=== PATIENT | female | born 1990 | race Caucasian/White ===

== ENCOUNTER → 2016-02-15 | Outpatient (CLI) | payer BC ==
--- NOTE | 2016-02-15 17:10 | REP ---
OBSTETRIC SONOGRAPHY: HISTORY: Supervision of . Followup anatomy. FINDINGS: Scanning through the gravid uterus demonstrates a viable single intrauterine gestation in a breech lie. motion is observed and heart rate is recorded at 136 beats per minute. A posterior grade 0 placenta is seen without evidence of previa or abruption. Amniotic fluid is subjectively normal. Closed cervical length is 3.4 cm. No extrauterine abnormality is observed. There has been appropriate interval growth. No anatomy is seen. The following anatomic structures are identified and felt to be sonographically unremarkable: cranium, cavum, cerebellum and posterior fossa, face in profile, lungs, four chamber heart, left and right ventricular cardiac outflow tract views, diaphragm, left-sided stomach, abdominal wall cord insertion, three-vessel umbilical cord, kidneys, bladder, spine, upper and lower extremities. Biometry chart: BPD 5.8 cm = 23 weeks 4 days HC 21.1 cm = 23 weeks 1 day AC 19.5 cm = 24 weeks 1 day FL 4.1 cm = 23 weeks 1 day HL 4.0 cm = 24 weeks 3 days CD 2.7 cm = 24 weeks 2 days HC/AC ratio normal 1.08. Cephalic index normal 0.76. Estimated weight 619 grams, 1 pound 5 ounces, 36th percentile for 24 weeks 0 days. IMPRESSION: Viable single intrauterine gestation at 23 weeks 1 day by today's composite sonographic criteria. Expected gestational age estimated based on prior sonography is 24 weeks 0 days. SAMSON by prior sonography 06/06/2016. anatomic survey is felt to be complete. Signed by Renan Macias MD 02/15/2016 06:02 P
== END ==
LOC: M SMT 08:47
PROVIDERS: ATTEND Specialist
DX: Z34.82 Encounter for supervision of other normal pregnancy, second trimester (principal); Z3A.23 23 weeks gestation of pregnancy

== ENCOUNTER → 2016-02-20 | Outpatient (CLI) | payer BC ==
[2016-02-20 13:50] LABS: MEAN CORPUSCULAR HEMOGLOBIN 22.5 pg (27.0-33.0); MEAN CORPUSCULAR HGB CONC 31.9 g/dl (32.0-36.5); MEAN CORPUSCULAR VOLUME 70.4 fl (80.0-96.0); RED CELL DISTRIBUTION WIDTH 15.1 % (11.5-14.5); WHITE BLOOD COUNT 10.8 K/mm3 (4.0-10.0)
[2016-02-21 12:36] LABS: CONTROL LINE INT CTR LINE PRESENT; HIV SCRN NEGATIVE (NEGATIVE); HIV SCRN1 NEGATIVE (NEGATIVE)
== END ==
LOC: M SMT 09:27
PROVIDERS: ATTEND Obstetrics & Gynecology
DX: Z34.82 Encounter for supervision of other normal pregnancy, second trimester (principal)

== ENCOUNTER → 2016-05-09 | Outpatient (REF) | payer BC | LOC: M LAB REF 12:52 | PROVIDERS: ATTEND Advanced Practice Midwife | DX: Z34.83 Encounter for supervision of other normal pregnancy, third trimester (principal) ==

== ENCOUNTER 2016-06-02 02:45 | Outpatient (CLI) | payer BC ==
[~2016-06-02] VITALS: Ht 167.6 cm; Wt 88.0 kg
== END 2016-06-02 06:30 | disposition home or self-care (01) ==
LOC: M LDO 02:45
PROVIDERS: ATTEND Specialist
DX: O62.0 Primary inadequate contractions (principal); Z3A.40 40 weeks gestation of pregnancy

== ENCOUNTER 2016-06-06 12:05 | Inpatient (IN) | payer BC ==
[2016-06-06] VITALS (32 sets, daily range): BP systolic 109–191; BP diastolic 58–89
[~2016-06-06] VITALS: Ht 167.6 cm; Wt 86.0 kg
[2016-06-06] MEDS ORDERED: PRENTAB9 PO (12:43)
[2016-06-06] MEDS ORDERED: OXYTOCIN DRIP 30 UNITS in APPROPRIATE DILUENT 1 EA IV SCH (14:15)
[2016-06-06 15:35] LABS: MEAN CORPUSCULAR HEMOGLOBIN 22.4 pg (27.0-33.0); MEAN CORPUSCULAR HGB CONC 31.4 g/dl (32.0-36.5); MEAN CORPUSCULAR VOLUME 71.3 fl (80.0-96.0); RED CELL DISTRIBUTION WIDTH 15.5 % (11.5-14.5); WHITE BLOOD COUNT 17.7 K/mm3 (4.0-10.0)
[2016-06-06 16:19] LABS: HBSAG L&D NEGATIVE (NEGATIVE)
--- NOTE | 2016-06-06 16:43 | HPE ---
DATE OF ADMISSION: 06/06/2016 PREOPERATIVE DIAGNOSIS: Induction of labor at 40 weeks, 5 days estimated gestational age. HISTORY OF PRESENT ILLNESS: Ms. Babb is a 26-year-old 1 who presents at 40 weeks, 5 days estimated gestational age by last menstrual period and confirmed by a first trimester ultrasound for induction of labor. She initially presented to the office today and was evaluated for a routine visit. She was noted to have bradycardia on Doppler tones with a heart rate of 90s that increased to a heart rate of 130s. She was then placed on the nonstress test and had a category 2 heart tracing with minimal variability with some variable decelerations. She reported active movement. She denies any vaginal bleeding or leakage of fluid. She has had some irregular contractions. Her course has been unremarkable. She initiated care in the first trimester in [place] and then transferred to our practice at 16 weeks. She has no medical problems. PAST MEDICAL HISTORY: None. PAST SURGICAL HISTORY: None. POST OBSTETRICAL HISTORY: She is a 1. MEDICATIONS: Include vitamins. ALLERGIES: She has no known drug allergies. SOCIAL HISTORY: Denies any alcohol, tobacco, or drug use during . PHYSICAL EXAMINATION: VITAL SIGNS: Stable. She is afebrile. She currently has a category 1 heart rate tracing with some occasional variable decelerations. She has some regular contractions on tocometer. GENERAL APPEARANCE: She is well-appearing in no acute distress. LUNGS: Clear to auscultation bilaterally. CARDIOVASCULAR: Heart regular rate and rhythm. ABDOMEN: Gravid, nontender. Estimated weight 3400 grams. CERVICAL EXAMINATION: She is 2-3 cm dilated, 75% effaced, -3 station. LABORATORY DATA: Blood type is A positive. Antibody screen is negative. Rubella is immune. RPR is nonreactive. Hepatitis surface antigen is negative. HIV is negative. Hepatitis C is nonreactive. Chlamydia and gonorrhea screens were negative. She has a normal one-hour Glucola. She is GBS negative. ASSESSMENT: This patient is a 26-year-old 1 at 40 weeks, 5 days estimated gestational age here for induction of labor secondary to category 2 heart tracing earlier but currently with reassuring status. PLAN: Admit to labor and delivery, complete blood count (CBC), rapid plasma reagin (RPR), type and screen. I have counseled the couple thoroughly in regards to her diagnosis and discussed pending postdates, currently at 40 weeks, 5 days estimated gestational age and heart tracing with category 2 tracing. I discussed induction of labor and all questions have been answered. She has been verbally consented for emergency surgery, blood products, anesthesia, and desires to proceed with labor. Plan to initiate her induction of labor with pitocin. MIRIAM
[2016-06-06] MEDS ORDERED: FENTANYL 2MCG/ML ROPIVACAINE 0.2% IN 0.9% NACL 200ML IVBAG As Ordered ONE (16:51)
[2016-06-06] MEDS ORDERED: ONDANSETRON 4MG/2ML VIAL (J2405) IV PRN (17:45)
[2016-06-06] MEDS ORDERED: diphenhydrAMINE INJ 50MG/ML VIAL (J1200) IV PRN (17:45)
[2016-06-06] MEDS ORDERED: NALOXONE INJ 0.4 MG/1 ML VIAL (J2310) IV PRN (17:45)
[2016-06-06] MEDS ORDERED: FENTANYL/ROPIVACAINE/NACL BAG 200 ML EPIDURAL SCH (17:45)
[2016-06-06] MEDS ORDERED: EPIDURAL/PCA KEYS XX PRN (17:45)
[2016-06-06] MEDS ORDERED: ePHEDrine SULFATE 25 MG/5 ML(5MG/ML) SYRINGE IV PRN (17:45)
[2016-06-06] MEDS ORDERED: EPIDURAL COMMENT XX SCH (17:45)
[2016-06-06] MEDS ORDERED: REFRIGERATOR IV KEYS XX PRN (17:45)
[2016-06-06] MEDS: LR 1,000 ML IV SCH (20:46)
[2016-06-06] MEDS ORDERED: BICITRA 30ML SOLN UDC As Ordered ONE (22:05)
[2016-06-06] MEDS ORDERED: ceFAZolin 2 GM/D5W 50 ML IV BAG (J0690) As Ordered ONE (22:05)
[2016-06-06] MEDS ORDERED: BICITRA 30ML SOLN UDC PO ONE (22:30)
[2016-06-06] MEDS ORDERED: ONDANSETRON 4MG/2ML VIAL (J2405) As Ordered ONE (22:41)
[2016-06-06] MEDS ORDERED: MORPHINE PRES-FREE INJ 10 MG/10 ML VIAL (J2274) As Ordered ONE (22:41)
[2016-06-06] MEDS ORDERED: OXYTOCIN INJ 10 UNITS/ML VIAL (J2590) As Ordered ONE (22:41)
[2016-06-06] MEDS ORDERED: KETOROLAC 60 MG/2 ML VIAL (J1885) As Ordered ONE (22:41)
[2016-06-06] MEDS ORDERED: fentaNYL 100 MCG/2 ML INJECTION (J3010) As Ordered ONE (22:58)
[2016-06-06 23:21] LABS: CORD GAS ABE A -4.2; CORD GAS HCO3 A 25.2 MEQ/L; CORD GAS O2 SAT A 26.8 %; CORD GAS PCO2 A 64.7 mmHg; CORD GAS PH A 7.208 UNITS; CORD GAS SBC A 19.3 MEQ/L; CORD GAS TCO2 A 27.2 MEQ/L
[2016-06-06 23:23] LABS: CORD GAS ABE V -1.3; CORD GAS HCO3 V 24.8 MEQ/L; CORD GAS PCO2 V 46.5 mmHg; CORD GAS PH V 7.345 UNITS; CORD GAS PO2 V 27.9 mmHg; CORD GAS SBC V 22.5 MEQ/L; CORD GAS TCO2 V 26.2 MEQ/L
[2016-06-06] MEDS ORDERED: LR 1,000 ML IV SCH (23:55)
[2016-06-07] VITALS (9 sets, daily range): BP systolic 114–130; BP diastolic 56–73
[2016-06-07] MEDS ORDERED: MEASLES,MUMPS,RUBELLA VACCINE INJ (MMR-II) (90707) SC SCH
[2016-06-07] MEDS ORDERED: RHOGAM 300 MCG (1500 IU) INJ (J2790) IM SCH
[2016-06-07] MEDS ORDERED: MOM 30ML SUSPENSION UDC PO PRN
[2016-06-07] MEDS ORDERED: OXYTOCIN DRIP 30 UNITS in APPROPRIATE DILUENT 1 EA IV ONE ×2
[2016-06-07] MEDS ORDERED: DOCUSATE SODIUM 100 MG CAP PO PRN
[2016-06-07] MEDS ORDERED: PERCOCET PO (00:14)
[2016-06-07] MEDS ORDERED: IBUP800T23 PO (00:17)
[2016-06-07] MEDS ORDERED: fentaNYL 100 MCG/2 ML INJECTION (J3010) As Ordered ONE (00:37)
[2016-06-07] MEDS ORDERED: fentaNYL 100 MCG/2 ML INJECTION (J3010) IV PRN (00:45)
[2016-06-07] MEDS ORDERED: MEPERIDINE INJ 25 MG/ML VIAL (J2175) IV PRN (00:45)
[2016-06-07] MEDS ORDERED: LR 1,000 ML IV SCH (00:45)
[2016-06-07] MEDS ORDERED: ONDANSETRON 4MG/2ML VIAL (J2405) IV PRN (00:45)
[2016-06-07] MEDS ORDERED: METOCLOPRAMIDE INJ 10MG/2ML VIAL (J2765) IV PRN (00:45)
[2016-06-07] MEDS ORDERED: PERCOCET 5MG/325MG TAB PO PRN ×2 (00:45)
[2016-06-07] MEDS ORDERED: diphenhydrAMINE INJ 50MG/ML VIAL (J1200) As Ordered ONE (01:05)
[2016-06-07] MEDS: diphenhydrAMINE 50 MG CAP PO PRN ×2 (03:16→12:43)
[2016-06-07] MEDS: KETOROLAC 30 MG/ML VIAL (J1885) IV SCH ×4 (05:13→22:45)
--- NOTE | 2016-06-07 05:58 | RO ---
DATE OF PROCEDURE: 06/06/2016 PREPROCEDURE DIAGNOSIS: Inability to augment labor. POSTPROCEDURE DIAGNOSIS: Inability to augment labor. PROCEDURE: Primary lower transverse section. SURGEON: Dr. Giovanna Ugarte GUNNER'S MATE G: Dr. Mir Callejas. ANESTHESIA: Epidural. ESTIMATED BLOOD LOSS: 500 mL. URINE OUTPUT: 200 mL. INTRAVENOUS FLUIDS: 1200 mL of lactated ringer solution. OPERATIVE FINDINGS: Live born female , 9 and 9, weight 3140 grams or 6 pounds 15 ounces. Cord gases 7.20, 7.34. Base excess -4.2, -1.3 respectively. INDICATION: This patient is a 26-year-old 1 who was undergoing induction of labor at 40 weeks 4 days estimated gestational age secondary to decels that were seen on routine exam in the office. Her antepartum course was significant for repetitive late decels with minimum variability. Pitocin was discontinued several times and was unable to continue secondary to late decels. Patient was counseled on primary section with indication of inability to augment labor. SPECIMENS: Cord blood and cord gases. PREOPERATIVE ANTIBIOTICS: 2 grams of Ancef. DESCRIPTION OF OPERATION: After informed consent was obtained and written content was reviewed, the patient was brought to the operating room where she was prepped and draped in a normal sterile fashion. A Dan catheter had previously been placed and set to gravity. A time out was then performed in the operating room identifying the patient, the procedure to be performed, as well as drug allergies. Anesthesia was then tested and deemed to be adequate. A Pfannenstiel skin incision was then made and carried down to the underlying rectus fascia. The fascia was then scored and this incision was extended bilaterally. The fascia was then dissected off the underlying rectus muscles, both superiorly and inferiorly. The rectus muscles were in the midline. The peritoneum was then entered. The vesicouterine peritoneum was then identified. It was tented and excised to create a bladder flap. The bladder blade was then placed to retract the bladder. A curvilinear incision was then made in the lower uterine segment where the head was then brought to the level of the incision and was delivered with the aide of the Kiwi vacuum followed by delivery of the shoulder and corpus. The cord was clamped times two and was cut. The infant was brought over to the warmer with a good cry. Cord gases and cord blood was obtained. The placenta was then drained and delivered grossly intact. The uterus was then exteriorized and cleared of all clots and debris. The uterine incision was then closed in two layers using #0 Vicryl first layer in a running locking fashion followed by a second layer of imbrication in a running nonlocking fashion. Several [id number] stitch were placed for hemostasis. The abdomen was then suctioned. The uterus was returned to the patient's abdomen and surgical sites were inspected and noted to be hemostatic. The anterior peritoneum was then reapproximated with #3-0 Vicryl. The rectus muscles were then reapproximated with #3-0 Vicryl. The fascia was then closed using #0 Vicryl in a running nonlocking fashion. The subcutaneous tissue was then irrigated and suctioned. The subcutaneous tissue was then reapproximated using #3-0 Vicryl. Several subdermal stitches were placed with #3-0 Vicryl. The skin was closed with #4-0 Monocryl in a subcuticular fashion. The incision was then cleaned and dried. Mastisol was applied above and below the incision. Steri-Strips were applied over the incision. The incision was then dressed. The patient was then taken to recovery in stable condition. The couple decided to name their daughter MIRIAM
[2016-06-07 06:42] LABS: MEAN CORPUSCULAR HEMOGLOBIN 22.6 pg (27.0-33.0); MEAN CORPUSCULAR HGB CONC 31.9 g/dl (32.0-36.5); MEAN CORPUSCULAR VOLUME 70.7 fl (80.0-96.0); RED CELL DISTRIBUTION WIDTH 15.3 % (11.5-14.5); WHITE BLOOD COUNT 20.3 K/mm3 (4.0-10.0)
[2016-06-07] MEDS: LR 1,000 ML IV SCH (07:20)
[2016-06-07] MEDS: PRENATAL VITAMIN TAB PO SCH (09:05)
[2016-06-07] MEDS: PERCOCET 5MG/325MG TAB PO PRN ×2 (09:25→17:08)
[2016-06-08 02:00] VITALS: BP 124/60
[2016-06-08 05:50] VITALS: BP 110/57
--- NOTE | 2016-06-08 06:19 | DSES ---
DATE OF ADMISSION: 06/06/2016 DATE OF DISCHARGE: 06/08/2016 HISTORY: A 26-year-old one female at 40 and 5/7 weeks gestation presents for labor induction. While being admitted, she was found to have bradycardia during initial non-stress testing. HOSPITAL COURSE: On 06/06/2016, the patient was admitted for labor induction. Tracing base gradually improved after her initial evaluation and labor induction was commenced. She made slow progress in labor and throughout the induction had recurrent, variable and even late decelerations. After reaching approximately 4 cm dilation, tracing became worse, and decision was made to perform section. On 06/06/2016, she underwent primary low-transverse section without complication. The result of surgery was a female infant at 6 pounds 15 ounces, with umbilical cord gas of 7.20. Her postoperative course was unremarkable. She had adequate return or bladder and bowel function. Postoperative hemoglobin was 9.1 grams/dL. She was deemed stable for discharge on postoperative day two. ADMISSION DIAGNOSIS: 40 and 5/7 weeks. DISCHARGE DIAGNOSIS: Delivered. PROCEDURE: Primary low-transverse section. DISPOSITION: The patient will followup with Dr. Ugarte in two weeks. Instructions were reviewed.
[2016-06-08] MEDS ORDERED: IBUPROFEN 800 MG TAB PO SCH (07:00)
[2016-06-08] MEDS: PRENATAL VITAMIN TAB PO SCH (08:52)
== END 2016-06-08 11:10 | disposition home or self-care (01) | DRG 540 ==
LOC: M LDI 12:05 → M OBS 06-07 01:41
PROVIDERS: ADMIT Obstetrics & Gynecology; ATTEND Obstetrics & Gynecology
PROC: 3E033VJ Introduction of Other Hormone into Peripheral Vein, Percutaneous Approach (ICD-10-PCS; 2016-06-06)
PROC: 10D00Z1 Extraction of Products of Conception, Low, Open Approach (ICD-10-PCS; principal; 2016-06-06 22:40)
DX: O48.0 Post-term pregnancy (principal); O76 Abnormality in fetal heart rate and rhythm complicating labor and delivery; Z3A.40 40 weeks gestation of pregnancy; Z37.0 Single live birth

== ENCOUNTER 2017-03-22 02:59 | Emergency (ER) | payer SELFPAY, BC | END 2017-03-22 03:55 | disposition left against medical advice (07) | LOC: M ED 02:59 | DX: Z53.21 Procedure and treatment not carried out due to patient leaving prior to being seen by health care provider (principal) ==

== ENCOUNTER → 2017-03-22 | Outpatient (CLI) | payer BC, OTHER ==
[2017-03-22 13:57] LABS: BASO % 0.4 % (0.0-1.0); EOS % 0.5 % (0.0-3.0); HEMATOCRIT 39.8 % (36.0-47.0); HEMOGLOBIN 12.2 g/dl (12.0-16.0); IMMATURE GRANULOCYTE % 0.2 % (0-3.0); LYMPH # 2.2 10^3/uL (1.5-6.5); LYMPH % 26.2 % (24.0-44.0); MEAN CORPUSCULAR HEMOGLOBIN 20.6 pg (27.0-33.0); MEAN CORPUSCULAR HGB CONC 30.7 g/dl (32.0-36.5); MEAN CORPUSCULAR VOLUME 67.3 fl (80.0-96.0); MONO # 0.4 10^3/uL (0.0-0.8); MONO % 5.2 % (0.0-5.0); NEUTROPHILS # 5.5 10^3/uL (1.8-7.7); NEUTROPHILS % 67.5 % (36.0-66.0); PLATELET COUNT, AUTOMATED 291 10^3/uL (150-450); RED BLOOD COUNT 5.91 10^6/uL (4.00-5.40); RED CELL DISTRIBUTION WIDTH 15.2 % (11.5-14.5); WHITE BLOOD COUNT 8.2 10^3/uL (4.0-10.0)
[2017-03-22 14:25] LABS: ALBUMIN 4.2 GM/DL (3.2-5.2); ALBUMIN/GLOBULIN RATIO 1.27 (1.00-1.93); ALKALINE PHOSPHATASE 71 U/L (45-117); ALT/SGPT 20 U/L (12-78); AMYLASE 48 U/L (25-115); ANION GAP 7 MEQ/L (8-16); AST/SGOT 8 U/L (7-37); BILIRUBIN,TOTAL 0.5 MG/DL (0.2-1.0); BLOOD UREA NITROGEN 10 MG/DL (7-18); CALCIUM LEVEL 9.8 MG/DL (8.5-10.1); CARBON DIOXIDE LEVEL 30 MEQ/L (21-32); CHLORIDE LEVEL 103 MEQ/L (98-107); CREATININE FOR GFR 0.66 MG/DL (0.55-1.30); GLOMERULAR FILTRATION RATE > 60.0 (>60); GLUCOSE, FASTING 97 MG/DL (70-100); LIPASE 111 U/L (73-393); POTASSIUM SERUM 4.2 MEQ/L (3.5-5.1); SODIUM LEVEL 140 MEQ/L (136-145); TOTAL PROTEIN 7.5 GM/DL (6.4-8.2)
== END ==
LOC: M SMT 11:54
DX: R10.13 Epigastric pain (principal)
CPT/HCPCS: 82150

== ENCOUNTER 2017-04-24 10:06 | Day surgery (SDC) | payer BC, OTHER ==
[2017-04-24 11:01] LABS: CONTROL LINE UCG INT CTR LINE PRESENT; URINE PREG TEST NEGATIVE (NEGATIVE)
[2017-04-24] MEDS: LR 1,000 ML IV (11:20)
[2017-04-24] MEDS ORDERED: LIDOCAINE 2% INJ 100 MG/5 ML SDV (FOR ANES.) As Ordered (13:05)
[2017-04-24] MEDS ORDERED: ROCURONIUM BROMIDE 50 MG/5 ML VIAL As Ordered (13:05)
[2017-04-24] MEDS ORDERED: fentaNYL 250 MCG/5 ML INJECTION (J3010) As Ordered (13:06)
[2017-04-24] MEDS ORDERED: PROPOFOL 200 MG/20 ML VIAL As Ordered (13:06)
[2017-04-24] MEDS ORDERED: MIDAZOLAM INJ 2 MG/2 ML VIAL (J2250) As Ordered (13:06)
[2017-04-24] MEDS ORDERED: dexameTHASONE 4 MG/ML 1ML VIAL (J1100) As Ordered (13:54)
[2017-04-24] MEDS ORDERED: METOCLOPRAMIDE INJ 10MG/2ML VIAL (J2765) As Ordered (13:54)
[2017-04-24] MEDS ORDERED: GLYCOPYRROLATE INJ 0.2 MG/ML 2 ML VIAL As Ordered ×2 (14:05)
[2017-04-24] MEDS ORDERED: NEOSTIGMINE 10 MG/10 ML VIAL (J2710) As Ordered ×3 (14:05→14:07)
[2017-04-24] MEDS ORDERED: ONDANSETRON 4MG/2ML VIAL (J2405) As Ordered (14:05)
[2017-04-24] MEDS ORDERED: KETOROLAC 60 MG/2 ML VIAL (J1885) As Ordered (14:06)
[2017-04-24] MEDS ORDERED: MORPHINE 10 MG/ML 1ML VIAL (J2270) As Ordered (14:12)
[2017-04-24] MEDS: LIDOCAINE W/EPINEPHRINE 1% 20ML VIAL As Ordered (14:28)
[2017-04-24] MEDS: BUPIVACAINE HCL 0.25% 10 ML VIAL As Ordered (14:28)
[2017-04-24] MEDS: PERCOCET 5MG/325MG TAB PO (15:10)
[2017-04-24] MEDS ORDERED: LR 1,000 ML IV (15:15)
[2017-04-24] MEDS ORDERED: NORCO, ANEXSIA 5/325MG TABLET (HYDROcodone/ACETAMINOPHEN) PO (15:15)
[2017-04-24] MEDS ORDERED: METOCLOPRAMIDE INJ 10MG/2ML VIAL (J2765) IV (15:15)
[2017-04-24] MEDS ORDERED: ONDANSETRON 4MG/2ML VIAL (J2405) IV (15:15)
[2017-04-24] MEDS ORDERED: fentaNYL 100 MCG/2 ML INJECTION (J3010) IV (15:15)
== END 2017-04-24 16:55 | disposition home or self-care (01) ==
LOC: M SDC 10:06
DX: K80.10 Calculus of gallbladder with chronic cholecystitis without obstruction (principal); K21.9 Gastro-esophageal reflux disease without esophagitis; Z79.899 Other long term (current) drug therapy
CPT/HCPCS: 47562

== ENCOUNTER → 2018-03-10 | Outpatient (REF) | payer BC, OTHER ==
[~2018-03-10] MED LIST: IBUP1TAB7 PO; OMEP20CA3 PO; PERCOCET PO; PRENTAB9 PO
== END ==
LOC: M LAB REF 16:23
PROVIDERS: ATTEND Physician Assistant
DX: J02.9 Acute pharyngitis, unspecified (principal)

== ENCOUNTER → 2018-03-13 | Outpatient (CLI) | payer OTHER, BC ==
[2018-03-13 12:37] LABS: BASO % 0.3 % (0.0-1.0); EOS % 0.2 % (0.0-3.0); HEMATOCRIT 39.5 % (36.0-47.0); LYMPH # 1.7 10^3/uL (1.5-6.5); LYMPH % 14.9 % (24.0-44.0); MEAN CORPUSCULAR HEMOGLOBIN 20.3 pg (27.0-33.0); MEAN CORPUSCULAR HGB CONC 30.4 g/dl (32.0-36.5); MEAN CORPUSCULAR VOLUME 66.9 fl (80.0-96.0); MONO # 0.9 10^3/uL (0.0-0.8); MONO % 7.8 % (0.0-5.0); NEUTROPHILS # 8.5 10^3/uL (1.8-7.7); NEUTROPHILS % 76.4 % (36.0-66.0); PLATELET COUNT, AUTOMATED 247 10^3/uL (150-450); WHITE BLOOD COUNT 11.1 10^3/uL (4.0-10.0)
[2018-03-13 12:48] LABS: ALBUMIN 3.8 GM/DL (3.2-5.2); ALT/SGPT 20 U/L (12-78); BILIRUBIN,TOTAL 0.6 MG/DL (0.2-1.0); BLOOD UREA NITROGEN 6 MG/DL (7-18); CALCIUM LEVEL 8.9 MG/DL (8.5-10.1); CARBON DIOXIDE LEVEL 27 MEQ/L (21-32); CHLORIDE LEVEL 104 MEQ/L (98-107); CREATININE FOR GFR 0.78 MG/DL (0.55-1.30); GLOMERULAR FILTRATION RATE > 60.0 (>60); GLUCOSE, FASTING 88 MG/DL (70-100); POTASSIUM SERUM 4.1 MEQ/L (3.5-5.1); SODIUM LEVEL 139 MEQ/L (136-145); TOTAL PROTEIN 7.3 GM/DL (6.4-8.2)
[2018-03-15 14:27] LABS: EBV AB TO NUCLEAR ANTIGEN >600.0 U/mL (0.0-17.9); EBV VIRAL CAPSID AG IgM <36.0 U/mL (0.0-35.9)
== END ==
LOC: M WUC 10:48
PROVIDERS: ATTEND Physician Assistant
DX: J02.9 Acute pharyngitis, unspecified (principal)

== ENCOUNTER → 2018-10-24 | Outpatient (REF) | payer OTHER ==
[~2018-10-24] MED LIST changes: -OMEP20CA3 PO; +OMEP20CA4 PO
[2018-10-29 00:06] LABS: HPV HYBRID CAPTURE II Negative (Negative)
== END ==
LOC: M LAB REF 13:11
PROVIDERS: ATTEND Specialist
DX: Z12.4 Encounter for screening for malignant neoplasm of cervix (principal)
CPT/HCPCS: 87624; G0123

== ENCOUNTER → 2018-11-19 | Outpatient (CLI) | payer OTHER | LOC: M LRY 12:51 | PROVIDERS: ATTEND Advanced Practice Midwife | DX: N91.2 Amenorrhea, unspecified (principal) ==

== ENCOUNTER → 2018-11-19 | Outpatient (CLI) | payer OTHER | LOC: M LRY 12:55 | PROVIDERS: ATTEND Advanced Practice Midwife | DX: N91.2 Amenorrhea, unspecified (principal) ==

== ENCOUNTER → 2019-02-17 | Outpatient (CLI) | payer OTHER ==
[~2019-02-17] MED LIST changes: +OMEP-172 PO; -OMEP20CA4 PO
[2019-02-17 20:35] LABS: HCG, SERUM QUALITATIVE POSITIVE (NEGATIVE)
[2019-02-18 16:05] LABS: HCG, SERUM QUANTITATIVE 24 MIU/ML
== END ==
LOC: M LRY 16:15
PROVIDERS: ATTEND Advanced Practice Midwife
DX: N91.2 Amenorrhea, unspecified (principal)

== ENCOUNTER → 2019-02-19 | Outpatient (REF) | payer OTHER | LOC: M PLALAB 16:28 | PROVIDERS: ATTEND Obstetrics & Gynecology | DX: N91.1 Secondary amenorrhea (principal) ==

== ENCOUNTER → 2019-05-22 | Outpatient (REF) | payer OTHER ==
[~2019-05-22] MED LIST changes: -OMEP-172 PO; +OMEP1CAP73 PO
[2019-05-22 13:13] LABS: HEMATOCRIT 38.5 % (36.0-47.0); HEMOGLOBIN 12.3 g/dl (12.0-15.5); MEAN CORPUSCULAR HEMOGLOBIN 21.4 pg (27.0-33.0); MEAN CORPUSCULAR HGB CONC 31.9 g/dl (32.0-36.5); MEAN CORPUSCULAR VOLUME 67.1 fl (80.0-96.0); PLATELET COUNT, AUTOMATED 266 10^3/uL (150-450); RED BLOOD COUNT 5.74 10^6/uL (4.00-5.40); WHITE BLOOD COUNT 9.2 10^3/uL (4.0-10.0)
[2019-05-22 14:08] LABS: HEPATITIS B SURFACE ANTIGEN NEGATIVE (NEGATIVE); HEPATITIS C VIRUS ABY INDEX 0.1 INDEX (<0.8); HIV 1&2 SCREEN CENTAUR NEGATIVE (NEGATIVE); RUBELLA IgG QUALITATIVE IMMUNE (IMMUNE)
[2019-05-22 14:40] LABS: CHLAMYDIA DNA AMPLIFICATION NEGATIVE (NEGATIVE); GC DNA AMPLIFICATION NEGATIVE (NEGATIVE)
== END ==
LOC: M PLALAB 10:14
PROVIDERS: ATTEND Obstetrics & Gynecology
DX: O34.211 Maternal care for low transverse scar from previous cesarean delivery (principal)

== ENCOUNTER 2019-07-09 14:53 | Emergency (ER) | payer BC, OTHER ==
[~2019-07-09] VITALS: Ht 167.6 cm; Wt 90.3 kg
[2019-07-09 15:38] LABS: BASO % 0.3 % (0.0-1.0); EOS # 0.1 10^3/uL (0.0-0.5); EOS % 0.5 % (0.0-3.0); HEMATOCRIT 33.1 % (36.0-47.0); HEMOGLOBIN 10.7 g/dl (12.0-15.5); LYMPH # 1.8 10^3/uL (1.5-5.0); LYMPH % 18.1 % (24.0-44.0); MEAN CORPUSCULAR HEMOGLOBIN 21.7 pg (27.0-33.0); MEAN CORPUSCULAR HGB CONC 32.3 g/dl (32.0-36.5); MEAN CORPUSCULAR VOLUME 67.3 fl (80.0-96.0); MONO # 0.5 10^3/uL (0.0-0.8); MONO % 4.6 % (0.0-5.0); NEUTROPHILS # 7.6 10^3/uL (1.5-8.5); PLATELET COUNT, AUTOMATED 226 10^3/uL (150-450); RED BLOOD COUNT 4.92 10^6/uL (4.00-5.40)
[2019-07-09 16:00] LABS: BLOOD UREA NITROGEN 6 MG/DL (7-18); CALCIUM LEVEL 8.9 MG/DL (8.5-10.1); CARBON DIOXIDE LEVEL 25 MEQ/L (21-32); CHLORIDE LEVEL 107 MEQ/L (98-107); CREATININE FOR GFR 0.48 MG/DL (0.55-1.30); GLOMERULAR FILTRATION RATE > 60.0 (>60); GLUCOSE, FASTING 100 MG/DL (70-100); POTASSIUM SERUM 3.7 MEQ/L (3.5-5.1); SODIUM LEVEL 138 MEQ/L (136-145)
[2019-07-09 17:25] VITALS: BP 114/82
--- NOTE | 2019-07-09 17:55 | REP ---
EMERGENCY OBSTETRIC SONOGRAPHY: HISTORY: Vaginal bleeding with clots. Some spotting a week ago. FINDINGS: Transabdominal scanning demonstrates a viable single intrauterine gestation in a breech lie. motion is observed and heart rate is recorded at 140 beats per minute. An anaerobe fundal grade 0 placenta is seen without evidence of previa or abruption. Amniotic fluid is subjectively normal. Closed cervical length is 3.2 cm. No extrauterine abnormalities observed. Exam quality is inhibited by position and early gestational age. The following anatomic structures are identified and felt to be unremarkable: cranium, choroid plexus, cavum, lungs, left-sided stomach, kidneys and bladder, upper extremities. Other anatomic structures are less than optimally seen due to position and early age. BIOMETRY CHART: BPD 3.4 cm = 16 weeks 4 days Head circumference 12.6 cm = 16 weeks 3 days Abdominal circumference 10.0 cm = 16 weeks 0 days Femur length 2.0 cm = 16 weeks 0 days Humeral length 2.0 cm = 16 weeks 0 days HC/AC ratio normal 1.27 Cephalic index normal 0.75 Estimated weight 143 grams, 0 pounds 5 ounces, 49th percentile for 15 week 6 days. IMPRESSION: Viable single intrauterine gestation at 16 weeks 1 day by today's composite sonographic criteria. SAMSON by sonography, December 23, 2019. No complication is identified. anatomic survey is limited due to early gestational age and position. Electronically Signed by Renan Macias MD 07/10/2019 09:12 A
== END 2019-07-09 17:27 | disposition home or self-care (01) ==
LOC: M ED 14:53
DX: O26.852 Spotting complicating pregnancy, second trimester (principal); Z3A.16 16 weeks gestation of pregnancy

== ENCOUNTER → 2019-07-29 | Outpatient (CLI) | payer BC ==
[~2019-07-29] MED LIST changes: +IBUP80TA PO; +OXYC1TAB23 PO; +TUMS750C22 PO
--- NOTE | 2019-07-29 09:31 | REP ---
Clinical: Anatomical evaluation. Comparison: 07/09/2019 . Findings: Examination demonstrates a single live intrauterine in transverse (head to maternal left) presentation. motion is identified by technologist. Placenta is noted anterior and grade I without evidence for placenta previa or abruption. Amniotic fluid volume is normal. Cervix measures 4.7 cm in length and appears closed. No evidence for nuchal cord. Gestational age by LMP 18 weeks 5 days with SAMSON 12/25/2019 . Gestational age by current measurements 18 weeks 5 days with SAMSON 12/25/2019 . FHR equals 147 beats per minute. Estimated weight 250 grams ( 44th percentile). Anatomical assessment demonstrates normal structures including cranium, choroid plexus, cavum, cerebellum/posterior fossa, facial features, lungs, diaphragm, stomach, cord insertion/three-vessel cord, kidneys/bladder, spine, and extremities. Impression: Single live intrauterine in transverse lie demonstrating appropriate interval growth. Limited evaluation of the heart/ventricular outflow tracts. Remainder of the anatomical assessment is complete and normal.
== END ==
LOC: M WHC 07:51
PROVIDERS: ATTEND Advanced Practice Midwife
DX: O34.219 Maternal care for unspecified type scar from previous cesarean delivery (principal); O32.2XX0 Maternal care for transverse and oblique lie, not applicable or unspecified; Z3A.18 18 weeks gestation of pregnancy

== ENCOUNTER → 2019-08-31 | Outpatient (CLI) | payer BC ==
--- NOTE | 2019-08-31 08:45 | REP ---
Clinical: Anatomical evaluation. Comparison: 07/29/2019 . Findings: Examination demonstrates a single live intrauterine in breech presentation. motion is identified by technologist. Placenta is noted anterior and grade zero without evidence for placenta previa or abruption. Amniotic fluid volume is normal. Cervix measures 3.8 cm in length and appears closed. No evidence for nuchal cord. Gestational age by LMP 23 weeks 3 days with SAMSON 12/25/2019 . Gestational age by current measurements 22 weeks 4 days with SAMSON 12/31/2019 . FHR equals 128 beats per minute. Estimated weight 544 grams ( 28th percentile). Anatomical assessment demonstrates normal structures including four-chamber heart/ left cardiac ventricular outflow tract. Impression: Single live intrauterine in breech presentation demonstrating appropriate interval growth. Right cardiac ventricular outflow tract again limited due to positioning. Four-chamber heart view and left cardiac ventricular outflow tract appear normal. Electronically Signed by Aditya Valdivia MD 08/31/2019 08:36 A
== END ==
LOC: M WHC 07:01
PROVIDERS: ATTEND Advanced Practice Midwife
DX: O99.212 Obesity complicating pregnancy, second trimester (principal); E66.9 Obesity, unspecified; Z3A.22 22 weeks gestation of pregnancy

== ENCOUNTER → 2019-09-24 | Outpatient (REF) | payer BC, OTHER ==
[2019-10-28 13:34] LABS: HEMATOCRIT 34.2 % (36.0-47.0); HEMOGLOBIN 10.5 g/dl (12.0-15.5); MEAN CORPUSCULAR HEMOGLOBIN 21.7 pg (27.0-33.0); MEAN CORPUSCULAR HGB CONC 30.7 g/dl (32.0-36.5); MEAN CORPUSCULAR VOLUME 70.8 fl (80.0-96.0); PLATELET COUNT, AUTOMATED 218 10^3/uL (150-450); RED BLOOD COUNT 4.83 10^6/uL (4.00-5.40); WHITE BLOOD COUNT 11.3 10^3/uL (4.0-10.0)
== END ==
LOC: M SFHCWAGY 11:43
PROVIDERS: ATTEND Advanced Practice Midwife
DX: Z34.90 Encounter for supervision of normal pregnancy, unspecified, unspecified trimester (principal)

== ENCOUNTER → 2019-12-02 | Outpatient (REF) | payer OTHER ==
[~2019-12-02] MED LIST changes: -IBUP80TA PO; -OXYC1TAB23 PO; -TUMS750C22 PO
== END ==
LOC: M SFHCWAGY 13:11
PROVIDERS: ATTEND Advanced Practice Midwife
DX: O34.211 Maternal care for low transverse scar from previous cesarean delivery (principal)

== ENCOUNTER → 2019-12-02 | Outpatient (CLI) | payer BC ==
--- NOTE | 2019-12-02 12:45 | REP ---
INDICATION: F/U ANATOMY FOR RVOT COMPARISON: 08/31/2019 TECHNIQUE: Transabdominal obstetrical ultrasound with color Doppler evaluation. FINDINGS: Examination demonstrates a single live intrauterine in cephalic presentation. motion is identified by technologist. Placenta is noted anterior and grade 3 without evidence for placenta previa or abruption. Amniotic fluid volume is normal. Cervix appears closed. Gestational age by LMP 36 weeks 5 days with SAMSON 12/25/2019. Gestational age by current measurements 36 weeks 3 days with SAMSON 12/27/2019. FHR equals 136 beats per minute. Estimated weight 3005 grams (54thpercentile). Anatomical assessment is limited due to advanced gestational age and body habitus. Imaging of the heart and ventricular outflow tracts is incomplete. IMPRESSION: Single live advanced gestation in cephalic presentation demonstrating appropriate estimated weight and growth. Anatomical assessment is incomplete and essentially nondiagnostic <Electronically signed by Aditya Valdivia > 12/02/19 [id number]
== END ==
LOC: M WHC 08:27
PROVIDERS: ATTEND Advanced Practice Midwife
DX: O34.211 Maternal care for low transverse scar from previous cesarean delivery (principal)

== ENCOUNTER → 2019-12-17 | Outpatient (CLI) | payer OTHER ==
[~2019-12-17] MED LIST changes: +IBUP80TA PO; +OXYC1TAB23 PO; +TUMS750C22 PO
== END ==
LOC: M LABSMTC 10:06
PROVIDERS: ATTEND Anesthesiology
DX: Z01.812 Encounter for preprocedural laboratory examination (principal); Z20.828 Contact with and (suspected) exposure to other viral communicable diseases
CPT/HCPCS: C9803; U0003

== ENCOUNTER 2019-12-22 05:33 | Inpatient (IN) | payer BC, OTHER ==
[2019-12-22] VITALS (7 sets, daily range): BP systolic 120–142; BP diastolic 63–80
[~2019-12-22] VITALS: Ht 167.6 cm; Wt 98.4 kg
[~2019-12-22 05:33] MED LIST changes: -IBUP80TA PO; -OXYC1TAB23 PO; -TUMS750C22 PO
[2019-12-22 06:38] LABS: HEMATOCRIT 33.2 % (36.0-47.0); MEAN CORPUSCULAR HEMOGLOBIN 20.4 pg (27.0-33.0); MEAN CORPUSCULAR HGB CONC 30.1 g/dl (32.0-36.5); MEAN CORPUSCULAR VOLUME 67.6 fl (80.0-96.0); PLATELET COUNT, AUTOMATED 245 10^3/uL (150-450); RED BLOOD COUNT 4.91 10^6/uL (4.00-5.40); WHITE BLOOD COUNT 9.9 10^3/uL (4.0-10.0)
[2019-12-22] MEDS ORDERED: LR 1,000 ML IV ONE (06:45)
[2019-12-22] MEDS ORDERED: APPROPRIATE DILUENT IV ONE (06:45)
[2019-12-22] MEDS ORDERED: TUMS750C22 PO (06:57)
[2019-12-22] MEDS ORDERED: BICITRA 30ML SOLN UDC PO ONE (07:45)
[2019-12-22] MEDS ORDERED: ceFAZolin SOD 2 GM in IV 1 EA IV ONE (07:45)
[2019-12-22] MEDS ORDERED: MORPHINE PRES-FREE INJ 10 MG/10 ML VIAL (J2274) As Ordered ONE (08:13)
[2019-12-22] MEDS ORDERED: OXYTOCIN 30 UNITS IN 0.9% NaCl 500ML IV BAG (J2590) As Ordered ONE (08:14)
[2019-12-22] MEDS ORDERED: dexameTHASONE 4 MG/ML 1ML VIAL (J1100 PER 1MG) As Ordered ONE (08:15)
[2019-12-22] MEDS ORDERED: OXYTOCIN INJ 10 UNITS/ML VIAL (J2590) As Ordered ONE (08:15)
[2019-12-22] MEDS ORDERED: ONDANSETRON 4MG/2ML VIAL As Ordered ONE (08:15)
[2019-12-22] MEDS ORDERED: KETOROLAC 60MG 2ML VIAL As Ordered ONE (08:15)
[2019-12-22] MEDS ORDERED: ACETAMINOPHEN 1000MG 100ML IV BTL (OFIRMEV) (J0131 PER 10MG) As Ordered ONE (09:27)
[2019-12-22] MEDS ORDERED: fentaNYL 100 MCG/2 ML INJECTION (J3010) As Ordered ONE (09:46)
[2019-12-22] MEDS ORDERED: diphenhydrAMINE 50MG/ML VIAL (J1200) IV PRN ×2 (10:00)
[2019-12-22] MEDS ORDERED: oxyCODONE 5MG TAB PO PRN (10:00)
[2019-12-22] MEDS ORDERED: NALBUPHINE HCL 10 MG/ML AMP (J2300) IV PRN (10:00)
[2019-12-22] MEDS ORDERED: MEPERIDINE INJ 25 MG/ML VIAL (J2175) IV PRN (10:00)
[2019-12-22] MEDS ORDERED: METOCLOPRAMIDE INJ 10MG/2ML VIAL (J2765 PER 1) IV PRN (10:00)
[2019-12-22] MEDS ORDERED: NALOXONE INJ 0.4MG/1ML VIAL (J2310 PER 1MG) IV PRN ×2 (10:00)
[2019-12-22] MEDS ORDERED: ONDANSETRON 4MG/2ML VIAL IV PRN ×3 (10:00→10:15)
[2019-12-22] MEDS ORDERED: fentaNYL 100 MCG/2 ML INJECTION (J3010) IV PRN (10:00)
[2019-12-22] MEDS ORDERED: OXYTOCIN DRIP 30 UNITS in IV 1 EA IV SCH (10:06)
[2019-12-22] MEDS ORDERED: RHOGAM 300 MCG (1500 IU) INJ (J2790) IM SCH (10:15)
[2019-12-22] MEDS ORDERED: MEASLES,MUMPS,RUBELLA VACCINE INJ (MMR-II) (90707) SC SCH (10:15)
[2019-12-22] MEDS ORDERED: ONDANSETRON 4 MG TAB PO PRN (10:15)
[2019-12-22] MEDS ORDERED: PERCOCET 5MG/325MG TAB PO PRN (10:15)
--- NOTE | 2019-12-22 11:02 | ROOPDOC ---
[facility] Report Of Operation Report of Operation DATE OF PROCEDURE: 12/22/19 Report of operation Preoperative diagnosis: 39 weeks, prior section Postoperative diagnosis: same Procedure: Repeat low transverse section. Surgeon: Sue Dodd M.D. Asst.: Noemí Cooper CNM EBL: 500 ml. Urine output: 100 mL's. Findings: 7 lbs. 11 oz. male infant, Apgars 9 and 9 g normal uterus, fallopian tubes, ovaries. Operative summary: Patient taken to the operating room where spinal anesthesia induced. She is prepped draped sterile fashion in the supine position. A Dan catheter was placed. A Pfannenstiel skin incision was made with scalpel. Fascia was incised and extended bilaterally. The peritoneal cavity was entered. A Mobius retractor was placed. A bladder flap was created. A curvilinear incision was made in lower uterine segment until Clear fluid was noted. The incision was extended manually. The was delivered from the vertex position without difficulty. Cord was double clamped and cut. The was handed waiting nurses. . The placenta was expressed. Uterus was closed with O-Vicryl in a running locked fashion. A second imbricating layer of Vicryl was placed. Peritoneum was closed with 2-0 Vicryl a running fashion. Fascia was closed with 0 Vicryl in running fashion. Skin was closed 4-0 Monocryl subcuticular sutures. Sponge, instrument and needle counts were correct. Noemí Cooper CNM, assisted with all aspects of the procedure. She helped each la cherie of the incision and deliver the fetus. SUE DODD MD Dec 22, 2019 11:02
[2019-12-22] MEDS: LR 1,000 ML IV SCH ×2 (12:13→18:06)
[2019-12-22] MEDS: KETOROLAC 30 MG/ML 1ML VIAL IV SCH ×2 (15:29→21:04)
[2019-12-22] MEDS: PERCOCET 5MG/325MG TAB PO PRN ×2 (17:16→22:20)
[2019-12-22] MEDS: DOCUSATE SODIUM 100 MG CAP PO PRN (21:04)
[2019-12-23 01:29] VITALS: BP 130/76
[2019-12-23] MEDS: KETOROLAC 30 MG/ML 1ML VIAL IV SCH (03:30)
[2019-12-23] MEDS ORDERED: OXYC1TAB23 PO (05:10)
[2019-12-23] MEDS ORDERED: IBUP80TA PO (05:12)
--- NOTE | 2019-12-23 05:17 | IPNPDOC ---
Progress Note Date of Service: Dec 23, 2019 Day#: 1 Progress Note SUBJECT: Pt is a 29-year-old 2 now Para 2 status post at 39-0/7 weeks.. She has been ambulating, voiding spontaneously without issue and tolerating regular diet. Breast feeding without issue. Reports lochia is normal. Patient is ambulating well. Reports some cramping with . Voiding without difficulty. OBJECTIVE: VITAL SIGNS: Within normal limits, afebrile. Alert and oriented times three. Breath sounds clear to auscultation. Heart rate: Regular rate and rhythm, no murmurs, rubs or gallops. Abdomen: Fundus firm at U-2. Soft, NTTP. [Minimal] lochia. ASSESSMENT: Pt is a 29-year-old 2 now Para 2 status post POD#1 PLAN: 1. Percocet and Motrin for pain. 2. Encourage breast feeding and ambulation. 3. Routine PP visit in 2 weeks in clinic. 4. Discussed return precautions at length. VS, I&O, 24H, Fishbone Vital Signs/I&O Vital Signs Date Time Temp Pulse Resp B/P (MAP) Pulse Ox O2 Delivery O2 Flow Rate FiO2 12/23/19 01:29 97.9 62 18 130/76 (94) 98 12/22/19 17:46 Room Air I&O- Last 24 Hours up to 6 AM 12/23/19 06:00 Intake Total 1825 ml Output Total 3350 ml Balance -1525 ml Laboratory Data 24H LABS Laboratory Tests 2 12/22/19 06:26: Nucleated Red Blood Cells % (auto) 0.0, Syphilis Serology NONREACTIVE CBC/BMP Laboratory Tests 12/22/19 06:26 SUE DODD MD Dec 23, 2019 05:17
[2019-12-23 06:00] VITALS: BP 134/67
[2019-12-23 07:06] LABS: HEMOGLOBIN 8.7 g/dl (12.0-15.5); MEAN CORPUSCULAR HEMOGLOBIN 21.1 pg (27.0-33.0); MEAN CORPUSCULAR HGB CONC 31.1 g/dl (32.0-36.5); MEAN CORPUSCULAR VOLUME 67.8 fl (80.0-96.0); PLATELET COUNT, AUTOMATED 206 10^3/uL (150-450); RED BLOOD COUNT 4.13 10^6/uL (4.00-5.40); WHITE BLOOD COUNT 14.5 10^3/uL (4.0-10.0)
[2019-12-23] MEDS: PRENATAL VITAMINS CHEWABLE TABLET PO SCH (08:28)
[2019-12-23] MEDS: PERCOCET 5MG/325MG TAB PO PRN ×2 (08:28→15:13)
[2019-12-23 10:00] VITALS: BP 137/85
[2019-12-23] MEDS: IBUPROFEN 800 MG TAB PO SCH ×2 (11:09→19:05)
[2019-12-23] MEDS: DOCUSATE SODIUM 100 MG CAP PO PRN (15:13)
[2019-12-23 18:00] VITALS: BP 131/77
[2019-12-23 22:00] VITALS: BP 141/84
[2019-12-24] MEDS: IBUPROFEN 800 MG TAB PO SCH ×2 (04:30→11:39)
[2019-12-24 06:09] VITALS: BP 129/89
[2019-12-24] MEDS: PRENATAL VITAMINS CHEWABLE TABLET PO SCH (09:00)
[2019-12-24 10:00] VITALS: BP 143/89
--- NOTE | 2019-12-24 10:14 | DSES ---
DATE OF ADMISSION: 12/22/2019 DATE OF DISCHARGE: 12/24/19 DISCHARGE DIAGNOSIS: Repeat section at term postop day #2, stable condition. SURGEON: Sacha Gardiner MD TRANSPORTATION OFFICER: Noemí Cooper CNM HISTORY: The patient is a 29-year-old 3, para 2-0-1-2 now who underwent a repeat section at term due to prior section. Her surgery was uncomplicated. She delivered a live male 7 pounds 11 ounces. Apgars 9 and 9. Estimated blood loss 500 mL. Her postoperative course has been uncomplicated. She has been out of bed for self care, capo care, and infant care. She is tolerating p.o. fluids and regular diet. Voiding without difficulty and passing flatus. Her pain has been well managed with p.o. pain medications. DISCHARGE PHYSICAL EXAMINATION: VITAL SIGNS: Temperature 98.3, pulse 69, respirations 19, blood pressure 141/84 this morning. GENERAL: She is alert and oriented x3. Smiling and talkative. BREASTS: Soft and nontender. Nipples intact. ABDOMEN: Fundus is firm at umbilicus. Incision with dressing in place. No drainage noted. Perineum intact. Lochia rubra scant. EXTREMITIES: Bilateral lower extremities +1 pitting edema. DISCHARGE PLAN: Discharge the patient home today. She is to follow-up at [facility] for a two week incision check and an [address] Gardiner. Her prescriptions have been e-prescribed by Dr. Sacha Gardiner to her pharmacy for pain control. I did review discharge instructions that include breast care, incision care, capo care, pelvic rest, activity and lifting restrictions, other dangerous signs to report to her provider and access to care. The patient has had her questions answered and desires discharge home. MIRIAM
== END 2019-12-24 13:10 | disposition home or self-care (01) | DRG 540 ==
LOC: M LDI 05:33 → M OBS 13:08
PROVIDERS: ADMIT Specialist; ATTEND Specialist
PROC: 10D00Z1 Extraction of Products of Conception, Low, Open Approach (ICD-10-PCS; principal; 2019-12-22 08:30)
DX: O34.211 Maternal care for low transverse scar from previous cesarean delivery (principal); Z3A.39 39 weeks gestation of pregnancy; Z37.0 Single live birth

== ENCOUNTER → 2020-09-05 | Outpatient (CLI) | payer BC, OTHER ==
[~2020-09-05] MED LIST changes: +IBUP80TA PO; +OXYC1TAB23 PO; +TUMS750C22 PO
[2020-09-05 14:27] LABS: ALBUMIN 3.9 GM/DL (3.2-5.2); ALT/SGPT 28 U/L (12-78); BILIRUBIN,TOTAL 0.5 MG/DL (0.2-1.0); BLOOD UREA NITROGEN 9 MG/DL (7-18); CALCIUM LEVEL 8.9 MG/DL (8.5-10.1); CARBON DIOXIDE LEVEL 27 MEQ/L (21-32); CHLORIDE LEVEL 107 MEQ/L (98-107); CHOLESTEROL LEVEL 233 MG/DL (<200); CHOLESTEROL RISK RATIO 4.755 (<5); CREATININE FOR GFR 0.78 MG/DL (0.55-1.30); FREE T4 0.77 NG/DL (0.76-1.46); GLOMERULAR FILTRATION RATE > 60.0 (>60); GLUCOSE, FASTING 89 MG/DL (70-100); HDL CHOLESTEROL 49 MG/DL (>40); LDL CHOLESTEROL 133 MG/DL (<100); NON-HDL-C 184 MG/DL; POTASSIUM SERUM 4.1 MEQ/L (3.5-5.1); SODIUM LEVEL 139 MEQ/L (136-145); THYROID STIMULATING HORMONE 0.659 uIU/ML (0.358-3.740); TOTAL PROTEIN 7.1 GM/DL (6.4-8.2); TRIGLYCERIDES LEVEL 255 MG/DL (<150)
== END ==
LOC: M PLALAB 10:35
PROVIDERS: ATTEND Nurse Practitioner Family
DX: Z00.00 Encounter for general adult medical examination without abnormal findings (principal)

== ENCOUNTER → 2021-04-28 | Outpatient (CLI) | payer OTHER, BC ==
[2021-04-28 12:36] LABS: BASO # 0.1 10^3/uL (0.0-0.2); BASO % 0.5 % (0.0-1.0); EOS # 0.1 10^3/uL (0.0-0.5); EOS % 1.2 % (0.0-3.0); HEMATOCRIT 38.7 % (36.0-47.0); HEMOGLOBIN 11.7 g/dl (12.0-15.5); LYMPH # 1.4 10^3/uL (1.5-5.0); LYMPH % 12.6 % (24.0-44.0); MEAN CORPUSCULAR HEMOGLOBIN 20.6 pg (27.0-33.0); MEAN CORPUSCULAR HGB CONC 30.2 g/dl (32.0-36.5); MONO # 0.7 10^3/uL (0.0-0.8); NEUTROPHILS # 8.8 10^3/uL (1.5-8.5); NEUTROPHILS % 79.4 % (36.0-66.0); PLATELET COUNT, AUTOMATED 229 10^3/uL (150-450); RED BLOOD COUNT 5.69 10^6/uL (4.00-5.40); WHITE BLOOD COUNT 11.1 10^3/uL (4.0-10.0)
[2021-04-28 12:58] LABS: ALT/SGPT 27 U/L (12-78); BILIRUBIN,TOTAL 0.6 MG/DL (0.2-1.0); BLOOD UREA NITROGEN 14 MG/DL (7-18); CALCIUM LEVEL 8.9 MG/DL (8.5-10.1); CARBON DIOXIDE LEVEL 27 MEQ/L (21-32); CHLORIDE LEVEL 107 MEQ/L (98-107); CHOLESTEROL LEVEL 215 MG/DL (<200); CHOLESTEROL RISK RATIO 4.479 (<5); CREATININE FOR GFR 0.75 MG/DL (0.55-1.30); FREE T4 0.81 NG/DL (0.76-1.46); GLOMERULAR FILTRATION RATE > 60.0 (>60); GLUCOSE, FASTING 90 MG/DL (70-100); HDL CHOLESTEROL 48 MG/DL (>40); LDL CHOLESTEROL 138 MG/DL (<100); MAGNESIUM LEVEL 2.1 MG/DL (1.8-2.4); NON-HDL-C 167 MG/DL; SODIUM LEVEL 138 MEQ/L (136-145); TOTAL PROTEIN 7.1 GM/DL (6.4-8.2); TRIGLYCERIDES LEVEL 146 MG/DL (<150)
== END ==
LOC: M WUC 09:02
PROVIDERS: ATTEND Nurse Practitioner Family
DX: R07.89 Other chest pain (principal)

== ENCOUNTER → 2022-02-01 | Outpatient (REF) | LOC: M EMP 11:03 | PROVIDERS: ATTEND Family Medicine | DX: Z11.52 Encounter for screening for COVID-19 (principal) ==

== ENCOUNTER → 2023-03-13 | Outpatient (CLI) | payer BC, OTHER ==
[2023-03-13 13:43] LABS: BASO % 0.4 % (0.0-1.0); EOS # 0.1 10^3/uL (0.0-0.5); EOS % 1.6 % (0.0-3.0); HEMATOCRIT 40.6 % (36.0-47.0); HEMOGLOBIN 12.4 g/dl (12.0-15.5); LYMPH # 2.2 10^3/uL (1.5-5.0); MEAN CORPUSCULAR HGB CONC 30.5 g/dl (32.0-36.5); MEAN CORPUSCULAR VOLUME 68.8 fl (80.0-96.0); MONO # 0.3 10^3/uL (0.0-0.8); MONO % 4.7 % (2.0-8.0); NEUTROPHILS # 4.2 10^3/uL (1.5-8.5); NEUTROPHILS % 61.2 % (36.0-66.0); PLATELET COUNT, AUTOMATED 257 10^3/uL (150-450); WHITE BLOOD COUNT 6.9 10^3/uL (4.0-10.0)
[2023-03-13 13:55] LABS: ALBUMIN 4.1 G/DL (3.2-5.2); ALKALINE PHOSPHATASE 65 U/L (46-116); ALT/SGPT 22 U/L (7.0-40); AST/SGOT 10 U/L (<34); BILIRUBIN,TOTAL 0.7 MG/DL (0.3-1.2); BLOOD UREA NITROGEN 8 MG/DL (9-23); CALCIUM LEVEL 9.4 MG/DL (8.5-10.1); CARBON DIOXIDE LEVEL 28 MMOL/L (20-31); CHLORIDE LEVEL 106 MMOL/L (98-107); CREATININE FOR GFR 0.74 MG/DL (0.55-1.30); GLOMERULAR FILTRATION RATE > 60.0 (>60); GLUCOSE, FASTING 86 MG/DL (60-100); POTASSIUM SERUM 4.1 MMOL/L (3.5-5.1); SODIUM LEVEL 139 MMOL/L (136-145); TOTAL PROTEIN 7.2 G/DL (5.7-8.2)
[2023-03-13 13:58] LABS: THYROID STIMULATING HORMONE 1.315 uIU/ML (0.55-4.78); TOTAL 25(OH) VITAMIN D 19.6 NG/ML (20.0-100.0)
[2023-03-13 13:59] LABS: FREE T4 1.15 NG/DL (0.89-1.76)
== END ==
LOC: M LAB 12:40
PROVIDERS: ATTEND Nurse Practitioner Family
DX: R07.89 Other chest pain (principal)

== ENCOUNTER → 2023-05-02 | Outpatient (CLI) | payer BC, OTHER ==
[2023-05-02 13:13] LABS: BASO % 0.4 % (0.0-1.0); EOS # 0.1 10^3/uL (0.0-0.5); EOS % 1.7 % (0.0-3.0); HEMOGLOBIN 12.1 g/dl (12.0-15.5); LYMPH # 2.4 10^3/uL (1.5-5.0); LYMPH % 33.8 % (24.0-44.0); MEAN CORPUSCULAR HEMOGLOBIN 20.8 pg (27.0-33.0); MEAN CORPUSCULAR HGB CONC 30.3 g/dl (32.0-36.5); MEAN CORPUSCULAR VOLUME 68.7 fl (80.0-96.0); MONO # 0.3 10^3/uL (0.0-0.8); MONO % 4.7 % (2.0-8.0); NEUTROPHILS # 4.2 10^3/uL (1.5-8.5); NEUTROPHILS % 59.3 % (36.0-66.0); PLATELET COUNT, AUTOMATED 262 10^3/uL (150-450); RED BLOOD COUNT 5.82 10^6/uL (4.00-5.40); WHITE BLOOD COUNT 7.2 10^3/uL (4.0-10.0)
[2023-05-02 13:32] LABS: BLOOD UREA NITROGEN 9 MG/DL (9-23); CALCIUM LEVEL 9.5 MG/DL (8.5-10.1); CARBON DIOXIDE LEVEL 29 MMOL/L (20-31); CHLORIDE LEVEL 104 MMOL/L (98-107); CREATININE FOR GFR 0.75 MG/DL (0.55-1.30); GLOMERULAR FILTRATION RATE > 60.0 (>60); GLUCOSE, FASTING 95 MG/DL (60-100); SODIUM LEVEL 137 MMOL/L (136-145)
== END ==
LOC: M LAB 12:28
PROVIDERS: ATTEND Emergency Medicine
DX: R07.9 Chest pain, unspecified (principal); R00.1 Bradycardia, unspecified

== ENCOUNTER → 2023-11-14 | Outpatient (REF) | payer BC, OTHER ==
[2023-11-14 13:08] LABS: BASO % 0.5 % (0.0-1.0); EOS # 0.1 10^3/uL (0.0-0.5); EOS % 1.5 % (0.0-3.0); HEMATOCRIT 42.7 % (36.0-47.0); HEMOGLOBIN 12.7 g/dl (12.0-15.5); LYMPH # 1.9 10^3/uL (1.5-5.0); LYMPH % 25.5 % (24.0-44.0); MEAN CORPUSCULAR HEMOGLOBIN 20.5 pg (27.0-33.0); MEAN CORPUSCULAR HGB CONC 29.7 g/dl (32.0-36.5); MONO # 0.5 10^3/uL (0.0-0.8); MONO % 6.1 % (2.0-8.0); NEUTROPHILS # 4.9 10^3/uL (1.5-8.5); NEUTROPHILS % 66.3 % (36.0-66.0); PLATELET COUNT, AUTOMATED 260 10^3/uL (150-450); RED BLOOD COUNT 6.19 10^6/uL (4.00-5.40); WHITE BLOOD COUNT 7.4 10^3/uL (4.0-10.0)
[2023-11-14 13:33] LABS: THYROID STIMULATING HORMONE 1.121 uIU/ML (0.55-4.78); TOTAL 25(OH) VITAMIN D 27.1 NG/ML (20.0-100.0); TOTAL IRON BINDING CAPACITY 392 UG/DL (250-425)
[2023-11-14 13:34] LABS: ALBUMIN 4.1 G/DL (3.2-5.2); ALKALINE PHOSPHATASE 76 U/L (46-116); ALT/SGPT 18 U/L (7.0-40); AST/SGOT < 8 U/L (<34); BILIRUBIN,TOTAL 0.9 MG/DL (0.3-1.2); BLOOD UREA NITROGEN 9 MG/DL (9-23); CARBON DIOXIDE LEVEL 29 MMOL/L (20-31); CHLORIDE LEVEL 106 MMOL/L (98-107); CREATININE FOR GFR 0.79 MG/DL (0.55-1.30); FOLATE 19.1 NG/ML (>5.4); GLOMERULAR FILTRATION RATE > 60.0 (>60); GLUCOSE, FASTING 90 MG/DL (60-100); IRON (FE) 107 UG/DL (50-170); MAGNESIUM LEVEL 2.2 MG/DL (1.8-2.4); PERCENT SATURATION 27.3 % (13.2-45.0); POTASSIUM SERUM 4.5 MMOL/L (3.5-5.1); SODIUM LEVEL 140 MMOL/L (136-145); TOTAL PROTEIN 7.3 G/DL (5.7-8.2)
[2023-11-14 13:35] LABS: FERRITIN 10.8 NG/ML (7.3-270.7); FREE T4 1.17 NG/DL (0.89-1.76)
[2023-11-14 13:36] LABS: VITAMIN B12 LEVEL 355 PG/ML (211-911)
[2023-11-14 13:39] LABS: FREE T3 3.6 PG/ML (2.3-4.2)
[2023-11-14 13:40] LABS: THYROID PEROXIDASE ANTIBODY > 1300.0 U/ML (<60.0)
== END ==
LOC: M LAB REF 12:04
PROVIDERS: ATTEND Nurse Practitioner Family
DX: R53.83 Other fatigue (principal)

== ENCOUNTER → 2024-06-01 | Outpatient (REF) | payer BC, OTHER | LOC: M LAB REF 13:25 | PROVIDERS: ATTEND Nurse Practitioner Family | DX: J06.9 Acute upper respiratory infection, unspecified (principal); Z20.828 Contact with and (suspected) exposure to other viral communicable diseases ==

== ENCOUNTER → 2024-11-13 | Outpatient (REF) | payer OTHER ==
[2024-11-13 10:25] LABS: ALT/SGPT 25 U/L (7.0-40); AST/SGOT 17 U/L (<34); CALCIUM LEVEL 10.0 MG/DL (8.5-10.1); CARBON DIOXIDE LEVEL 30 MMOL/L (20-31); CHLORIDE LEVEL 101 MMOL/L (98-107); CHOLESTEROL LEVEL 256 MG/DL (<200); CHOLESTEROL RISK RATIO 5.26 (<5); CREATININE FOR GFR 0.85 MG/DL (0.55-1.30); GLOMERULAR FILTRATION RATE > 90.0 (>60); LDL CHOLESTEROL 163.8 MG/DL (<100); NON-HDL-C 207.4 MG/DL; POTASSIUM SERUM 4.3 MMOL/L (3.5-5.1); SODIUM LEVEL 139 MMOL/L (136-145); TRIGLYCERIDES LEVEL 218 MG/DL (<150)
[2024-11-13 10:35] LABS: FREE T4 1.22 NG/DL (0.89-1.76); TOTAL 25(OH) VITAMIN D 26.4 NG/ML (20.0-100.0)
== END ==
LOC: M LAB REF 09:25
PROVIDERS: ATTEND Nurse Practitioner Family
DX: E03.9 Hypothyroidism, unspecified (principal)

== ENCOUNTER → 2025-01-22 | Outpatient (CLI) | payer OTHER | LOC: M WUC 10:27 | PROVIDERS: ATTEND Nurse Practitioner Family | DX: M25.552 Pain in left hip (principal) ==